=== PATIENT | male | born 1960 | race Caucasian/White ===

== ENCOUNTER 2017-09-25 14:26 | Emergency (ER) | payer MEDICAID ==
--- NOTE | 2017-09-25 16:11 | EDPHY ---
H & P Smoking Status: Current every day smoker Time Seen by Provider: 09/25/17 14:40 HPI/ROS: CHIEF COMPLAINT: Paranoid, M1 hold HISTORY OF PRESENT ILLNESS: 57-year-old male presents to the emergency department on M1 hold. The patient is feeling homicidal. He is feeling extremely paranoid and delusional. He admits to using methamphetamines 4 days ago. He denies pain in his chest or difficulty breathing. Denies abdominal pain. Denies suicidal ideation. Denies auditory hallucinations. REVIEW OF SYSTEMS: Constitutional: No fever, no chills. Eyes: No double or blurry vision. ENT: No sore throat. Respiratory: No cough, no shortness of breath. Cardiac: No chest pain. Gastrointestinal: No abdominal pain, vomiting or diarrhea. Genitourinary: No dysuria. Musculoskeletal: No neck or back pain. Skin: No rashes. Neurological: No headache. (Yamile Padilla) Past Medical/Surgical History: Mental health issues (Yamile Padilla) Social History: Homeless (Yamile Padilla) Physical Exam: General Appearance: Alert, no distress. No visible signs of trauma to his head. Vital signs are stable. Eyes: Pupils equal and round. Extraocular motions are all intact. ENT: Mouth: Mucous membranes moist. Respiratory: No wheezing, rhonchi, or rales, lungs are clear to auscultation. Cardiovascular: Regular rate and rhythm. Gastrointestinal: Abdomen is soft and nontender, no masses, no rebound or guarding, bowel sounds normal. Neurological: Alert and oriented x 3, cranial nerves II through XII grossly intact Skin: Warm and dry, no rashes. Musculoskeletal: Nontender to palpate along the cervical, thoracic or lumbar spine. Neck is supple. Extremities: Full range of motion and no peripheral edema. Psychiatric: Patient is oriented X 3, there is no agitation. (Yamile Padilla) Constitutional: Initial Vital Signs Temperature (C) 36.6 C 09/25/17 14:40 Heart Rate 74 09/25/17 14:40 Respiratory Rate 18 09/25/17 14:40 Blood Pressure 120/84 H 09/25/17 14:40 O2 Sat (%) 97 09/25/17 14:40 O2 Delivery Mode Room Air Allergies/Adverse Reactions: No Known Allergies Allergy (Verified 08/09/14 01:26) Home Medications: Medication Instructions Recorded Sulfamethox/Tmp 800/160 mg 1 tab PO BID #14 tab 08/09/14 [Bactrim DS] Medical Decision Making ED Course/Re-evaluation: 57-year-old male presents to the emergency department feeling extremely paranoid. He is on an M1 hold is feeling homicidal. When the patient is medically cleared, the patient will be placed. He has already had his mental health evaluation at [facility] prior to arrival. (Yamile Padilla) Patient signed over at 11:00 p.m. shift change to Dr. Hinojosa. (Ron Casey ) 6:30 a.m.- Patient remained stable throughout my shift. Mental health team is looking for placement at likely crisis stabilization unit. The case will be signed out at 7 :00 a.m. to the oncoming provider Dr. Anderson. (Mae Hinojosa) 1:50 a.m. the patient has been accepted at [facility] by Dr. Morrissey. Transfer paperwork completed. (Lance Anderson) I assumed care of the patient at 4:00 p.m. and. The patient became agitated prior to being transferred to [facility]. The patient required physical restraints and chemical restraint with 10 mg of IM Haldol. This resulted in [facility] temporarily declining the patient for transfer. The patient received oral Zyprexa and 1 mg of Ativan which resulted in appropriate control of his behavior. His physical restraints were removed. He was observed in the department for another 4 hours without increasing aggressive behavior and has been accepted at [facility]. (Jose Eduardo Ellington) Differential Diagnosis: Altered mental status including but not limited to hypoglycemia, infectious process, electrolyte abnormality, head injury and intoxicants. (Yamile Padilla) Care Turn Over: Care will be turned over to Dr. Ron Casey for disposition and plan. (Yamile Padilla) - Data Points Laboratory Results: Laboratory Results 09/25/17 18:05 09/25/17 18:05 Medications Given: Discontinued Medications Haloperidol Lactate (Haldol Injection) 10 mg IVP EDNOW ONE Stop: 09/26/17 16:26 Last Admin: 09/26/17 16:40 Dose: 10 mg Lorazepam (Ativan) 1 mg PO EDNOW ONE Stop: 09/26/17 21:01 Last Admin: 09/26/17 21:55 Dose: Not Given Olanzapine (Zyprexa Zydis) 5 mg PO EDNOW ONE Stop: 09/26/17 21:01 Last Admin: 09/26/17 21:55 Dose: Not Given Departure - Departure Disposition: Other Psych, Not [facility] Clinical Impression: Homicidal ideation, Paranoid Condition: Fair Referrals: NONE *PRIMARY CARE P,. [Primary Care Provider] - As per Instructions
[2017-09-25] MEDS ORDERED: OLANZapine DISINTEGR 10 MG TAB ONE (18:11)
[2017-09-25] MEDS ORDERED: diphenhydrAMINE 25 MG CAP PO ONE (18:11)
[2017-09-25 18:32] LABS: % IMMATURE GRANULYOCYTES 0.2 % (0.0-1.1); ABSOLUTE IMMATURE GRANULOCYTES 0.01 10^3/uL (0.00-0.10); ADD DIFF? NO; ADD MORPH? NO; ADD SCAN? NO; ATYPICAL LYMPHOCYTE FLAG 0 (0-99); FRAGMENT RBC FLAG 0 (0-99); HEMOGLOBIN 15.7 g/dL (13.7-17.5); LEFT SHIFT FLG 0 (0-99); LIPEMIA HEMOLYSIS FLAG 80 (0-99); MEAN CELL HEMOGLOBIN 31.3 pg (27.9-34.1); MEAN CELL HEMOGLOBIN CONCENTR. 33.4 g/dL (32.4-36.7); MEAN CELL VOLUME 93.8 fL (81.5-99.8); MEAN PLATELET VOLUME 11.3 fL (8.7-11.7); PLATELET CLUMPS FLAG 0 (0-99); PLATELET COUNT 130 10^3/uL (150-400); RED BLOOD CELL COUNT 5.01 10^6/uL (4.40-6.38); RED CELL DISTRIBUTION WIDTH 12.8 % (11.5-15.2)
[2017-09-25 18:41] LABS: ANION GAP 10 mEq/L (8-16); CALCIUM 9.5 mg/dL (8.5-10.4); CARBON DIOXIDE 25 mEq/l (22-31); CHLORIDE 104 mEq/L (97-110); CREATININE 0.9 mg/dL (0.7-1.3); ETHANOL SERUM < 10 mg/dL (0-10); GLOMERULAR FILTRATION RATE > 60; GLUCOSE 102 mg/dL (70-100); POTASSIUM 4.1 mEq/L (3.5-5.2); SODIUM 139 mEq/L (134-144)
[2017-09-26 09:32] VITALS: RESP 18
[2017-09-26 14:54] VITALS: O2SAT 95
[2017-09-26] MEDS ORDERED: HALOPERIDOL LACT 5 MG/ML INJ ONE (16:15)
[2017-09-26] MEDS ORDERED: HALOPERIDOL LACT 5 MG/ML INJ IVP ONE (16:25)
[2017-09-26 20:59] VITALS: BP 125/84
[2017-09-26] MEDS ORDERED: OLANZapine DISINTEGR 5 MG TAB PO ONE (21:00)
[2017-09-26] MEDS ORDERED: LORazepam 1 MG TAB PO ONE (21:00)
[2017-09-26 21:50] VITALS: PULSE 84; TEMP 98.1
== END 2017-09-26 22:12 ==
DX: R45.850 Homicidal ideations (principal); F22 Delusional disorders; F17.200 Nicotine dependence, unspecified, uncomplicated
CPT/HCPCS: 80305; 96374; G0480

== ENCOUNTER 2017-10-16 19:15 | Emergency (ER) | payer MEDICAID ==
[2017-10-16] MEDS ORDERED: ONDANSETRON 4 MG/2 ML VIAL IVP ONE (19:32)
[2017-10-16] MEDS ORDERED: NS 1,000 ML IV ONE (19:32)
--- NOTE | 2017-10-16 19:36 | EDPHY ---
H & P Smoking Status: Current every day smoker Time Seen by Provider: 10/16/17 19:25 HPI/ROS: CHIEF COMPLAINT: Vomiting, diarrhea, abdominal pain HISTORY OF PRESENT ILLNESS: 57-year-old homeless male presents to the emergency department by private vehicle complaining of multiple episodes of vomiting and diarrhea that began early this morning. He has diffuse abdominal pain. He has vomited multiple times and has had multiple episodes of diarrhea. No hematemesis or blood in his stool. Denies melena. He denies chest pain or difficulty breathing. He states "I did a hit of meth earlier today" as he thought this would help his pain. No back pain. No urinary symptoms. No reported trauma. He states that he is sober from alcohol. REVIEW OF SYSTEMS: Constitutional: No fever, no chills. Eyes: No double or blurry vision. ENT: No sore throat. Respiratory: No cough, no shortness of breath. Cardiac: No chest pain. Gastrointestinal: Abdominal pain, vomiting, diarrhea Genitourinary: No dysuria. Musculoskeletal: No neck or back pain. Skin: No rashes. Neurological: No headache. (Shahnaz Padillaa Ludwig) Past Medical/Surgical History: Substance abuse, liver biopsy, hernia (Yamile Padilla) Social History: Homeless (Yamile Padilla) Physical Exam: General Appearance: Alert, moderate distress. Eyes: Pupils equal and round. Extraocular motions are all intact. ENT: Mouth: Mucous membranes moist. Respiratory: No wheezing, rhonchi, or rales, lungs are clear to auscultation. Cardiovascular: Regular rate and rhythm. Gastrointestinal: Abdomen appears distended. He has a midline surgical incision which is healed. He has diffuse tenderness with palpation especially in his right upper quadrant. No rebound tenderness. No guarding. Patient does have ventral hernia in the epigastric area which is not incarcerated. No CVA tenderness bilaterally. Neurological: Alert and oriented x 3, cranial nerves II through XII grossly intact Skin: Warm and dry, no rashes. Musculoskeletal: Nontender to palpate along the cervical, thoracic or lumbar spine. Neck is supple. Extremities: Full range of motion and no peripheral edema. Psychiatric: Patient is oriented X 3, there is no agitation. (Yamile Padilla) Constitutional: Initial Vital Signs Temperature (C) 36.5 C 10/16/17 19:19 Heart Rate 85 10/16/17 19:19 Respiratory Rate 18 10/16/17 19:19 Blood Pressure 119/73 10/16/17 19:19 O2 Sat (%) 98 10/16/17 19:19 O2 Delivery Mode Room Air Allergies/Adverse Reactions: No Known Allergies Allergy (Verified 08/09/14 01:26) Home Medications: Medication Instructions Recorded NK [No Known Home Meds] 10/16/17 Medical Decision Making - Diagnostics Imaging: Discussed imaging studies w/ call specialist Radiologist ED Course/Re-evaluation: 19:41 I examined this patient. []. I concur with Yamile Padilla's plan for CT abdomen/pelvis with contrast. I have discussed the CT findings, laboratory findings, vital signs and I have examined the patient. This patient has extra neuritis. Unfortunately he is homeless but we do not have criteria keep him here in the hospital. We will give him supportive care and given follow-up with an on-call physician. (Rudolph Damon) The case was discussed with Dr. Rudolph Damon, secondary supervising physician, who did not directly evaluate the patient but agrees with treatment and plan. 57-year-old male presents with abdominal pain, distention, vomiting and diarrhea. CT imaging of the abdomen and pelvis was ordered which revealed no evidence of obstruction. He did have a distended stomach and multiple ventral hernias, however no definitive obstruction. Likely related to gastroenteritis. The patient was observed for over 3 hr in the emergency department. Did have 1 additional episode of diarrhea. Patient has not been on antibiotics. No recent travel. He has not been hospitalized recently. I do not think antibiotics are indicated. This was discussed with patient. I encouraged [facility]. He was rectal to return if he developed fever, worsening abdominal pain, or if he felt worse in any way. (Yamile Padilla) Differential Diagnosis: Including but not limited to gastroenteritis, diverticulitis, perforation, bowel obstruction (Yamile Padilla) - Data Points Laboratory Results: Laboratory Results 10/16/17 19:58 10/16/17 19:58 10/16/17 10/16/17 10/16/17 20:02 19:58 19:58 WBC 12.37 10^3/uL H 10^3/uL (3.80-9.50) RBC 5.33 10^6/uL 10^6/uL (4.40-6.38) Hgb 16.9 g/dL g/dL (13.7-17.5) POC Hgb 17.3 gm/dL gm/dL (13.7-17.5) Hct 49.2 % % (40.0-51.0) POC Hct 51 % % (40-51) MCV 92.3 fL fL (81.5-99.8) MCH 31.7 pg pg (27.9-34.1) MCHC 34.3 g/dL g/dL (32.4-36.7) RDW 13.3 % % (11.5-15.2) Plt Count 203 10^3/uL 10^3/uL (150-400) MPV 10.1 fL fL (8.7-11.7) Neut % (Auto) 89.7 % H % (39.3-74.2) Lymph % (Auto) 5.0 % L % (15.0-45.0) [place] % (Auto) 4.1 % L % (4.5-13.0) Eos % (Auto) 0.5 % L % (0.6-7.6) Baso % (Auto) 0.2 % L % (0.3-1.7) Nucleat RBC Rel Count 0.0 % % (0.0-0.2) Absolute Neuts (auto) 11.09 10^3/uL H 10^3/uL (1.70-6.50) Absolute Lymphs (auto) 0.62 10^3/uL L 10^3/uL (1.00-3.00) Absolute Monos (auto) 0.51 10^3/uL 10^3/uL (0.30-0.80) Absolute Eos (auto) 0.06 10^3/uL 10^3/uL (0.03-0.40) Absolute Basos (auto) 0.03 10^3/uL 10^3/uL (0.02-0.10) Absolute Nucleated RBC 0.00 10^3/uL 10^3/uL (0-0.01) Immature Gran % 0.5 % % (0.0-1.1) Immature Gran # 0.06 10^3/uL 10^3/uL (0.00-0.10) POC Sodium 144 mEq/L mEq/L (134-144) Sodium 142 mEq/L mEq/L (134-144) POC Potassium 4.0 mEq/L mEq/L (3.3-5.0) Potassium 4.9 mEq/L mEq/L (3.5-5.2) POC Chloride 108 mEq/L mEq/L (97-110) Chloride 107 mEq/L mEq/L (97-110) Carbon Dioxide 19 mEq/l L mEq/l (22-31) Anion Gap 16 mEq/L mEq/L (8-16) POC BUN 24 mg/dL H mg/dL (7-23) BUN 22 mg/dL mg/dL (7-23) Creatinine 0.9 mg/dL mg/dL (0.7-1.3) POC Creatinine 0.7 mg/dL mg/dL (0.7-1.3) Estimated GFR > 60 Glucose 117 mg/dL H mg/dL (70-100) POC Glucose 123 mg/dL H mg/dL (70-100) Calcium 9.5 mg/dL mg/dL (8.5-10.4) Total Bilirubin 0.8 mg/dL mg/dL (0.1-1.4) Conjugated Bilirubin 0.4 mg/dL mg/dL (0.0-0.5) Unconjugated Bilirubin 0.4 mg/dL mg/dL (0.0-1.1) AST 86 IU/L H IU/L (17-59) ALT 111 IU/L H IU/L (21-72) Alkaline Phosphatase 83 IU/L IU/L (38-126) Total Protein 8.0 g/dL g/dL (6.3-8.2) Albumin 4.0 g/dL g/dL (3.5-5.0) Lipase 300 IU/L IU/L (23-300) Medications Given: Discontinued Medications Sodium Chloride (Ns) 1,000 mls @ 0 mls/hr IV ONCE ONE PRN Reason: Wide Open Stop: 10/16/17 19:33 Last Admin: 10/16/17 20:06 Dose: 1,000 mls Ondansetron HCl (Zofran) 4 mg IVP EDNOW ONE Stop: 10/16/17 19:33 Last Admin: 10/16/17 20:06 Dose: 4 mg Point of Care Test Results: 10/16/17 20:02 POC Sodium 144 POC Potassium 4.0 POC Chloride 108 POC BUN 24 H POC Creatinine 0.7 POC Glucose 123 H Departure - Departure Disposition: Home, Routine, Self-Care Clinical Impression: Acute gastroenteritis Abdominal pain Qualifiers: Abdominal location: generalized Qualified Code(s): R10.84 - Generalized abdominal pain Condition: Good Instructions: Gastroenteritis (ED), Abdominal Pain (ED) Additional Instructions: Abdominal Pain: Return to the Emergency Department immediately for increasing pain, fever, vomiting, or if not completely better in 8-12 hours. Diet and activity as tolerated. Referrals: [facility],. [Clinic] - As per Instructions
[2017-10-16 20:05] LABS: % IMMATURE GRANULYOCYTES 0.5 % (0.0-1.1); ABSOLUTE IMMATURE GRANULOCYTES 0.06 10^3/uL (0.00-0.10); ADD DIFF? NO; ADD MORPH? NO; ADD SCAN? NO; ATYPICAL LYMPHOCYTE FLAG 0 (0-99); FRAGMENT RBC FLAG 0 (0-99); HEMATOCRIT 49.2 % (40.0-51.0); HEMOGLOBIN 16.9 g/dL (13.7-17.5); LEFT SHIFT FLG 10 (0-99); LIPEMIA HEMOLYSIS FLAG 90 (0-99); MEAN CELL HEMOGLOBIN 31.7 pg (27.9-34.1); MEAN CELL HEMOGLOBIN CONCENTR. 34.3 g/dL (32.4-36.7); MEAN CELL VOLUME 92.3 fL (81.5-99.8); MEAN PLATELET VOLUME 10.1 fL (8.7-11.7); PLATELET CLUMPS FLAG 0 (0-99); PLATELET COUNT 203 10^3/uL (150-400); RED BLOOD CELL COUNT 5.33 10^6/uL (4.40-6.38); RED CELL DISTRIBUTION WIDTH 13.3 % (11.5-15.2)
[2017-10-16 20:15] LABS: ALANINE AMINOTRANSFERASE 111 IU/L (21-72); ALKALINE PHOSPHATASE 83 IU/L (38-126); ANION GAP 16 mEq/L (8-16); ASPARTATE AMINOTRANSFERASE 86 IU/L (17-59); BILIRUBIN,TOTAL 0.8 mg/dL (0.1-1.4); BILIRUBIN-CONJUGATED 0.4 mg/dL (0.0-0.5); BILIRUBIN-UNCONJUGATED 0.4 mg/dL (0.0-1.1); CALCIUM 9.5 mg/dL (8.5-10.4); CARBON DIOXIDE 19 mEq/l (22-31); CHLORIDE 107 mEq/L (97-110); CREATININE 0.9 mg/dL (0.7-1.3); GLOMERULAR FILTRATION RATE > 60; GLUCOSE 117 mg/dL (70-100); POTASSIUM 4.9 mEq/L (3.5-5.2); SODIUM 142 mEq/L (134-144)
[2017-10-16] MEDS ORDERED: IOPAMIDOL (ISOVUE-300) 100 ML BTL ONE (20:23)
[2017-10-16 22:24] VITALS: BP 106/73; PULSE 82; RESP 16; TEMP 98.2; O2SAT 97
== END 2017-10-16 22:22 | disposition home or self-care (01) ==
LOC: EDUNIT#
DX: K52.9 Noninfective gastroenteritis and colitis, unspecified (principal)
CPT/HCPCS: 82947-QW; 96374; J2405; Q9967